=== PATIENT | female | born 2000 | race Caucasian/White ===

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

== ENCOUNTER 2023-11-02 00:53 | Outpatient (CLI) | payer MEDICAID ==
[~2023-11-02] VITALS: Ht 170.2 cm; Wt 84.1 kg
--- NOTE | 2023-11-02 01:00 | NUR ---
Ambulatory to unit for labor assessment, acccompanied by lou. Oriented to room, monitor, plan of care. Pt reports "ctx since 08:30(pm) and they've been getting stronger and closer together. Pt denies LOF or bloody show, stating " maybe more thin mucous since this morning" SVE with no free fluid or vaginal bleeding noted, amniotrace negative.FHT's initially with no acclereations, BP 129/85 P 84. To RL.
[2023-11-02 01:15] VITALS: BP 129/85; PULSE 84; TEMP 98.6
[2023-11-02 01:30] VITALS: BP 111/64; PULSE 77
[2023-11-02] MEDS ORDERED: LR 1,000 ML IV PRN (01:30)
[2023-11-02] MEDS ORDERED: PRENATAL TABLET PO (01:38)
[2023-11-02 02:15] VITALS: BP 121/65; PULSE 80
--- NOTE | 2023-11-02 02:15 | NUR ---
Repeat SVE with no changes noted. Pt reports "ctx are getting stronger" Off monitor to move around room, birthing ball provided.
--- NOTE | 2023-11-02 03:01 | NUR ---
Back on monitor.
[2023-11-02 03:15] VITALS: BP 135/84; PULSE 77
--- NOTE | 2023-11-02 03:43 | NUR ---
Discharge instructions reviewed with pt and spouse. Questions invited and answered. Ambulatory off unit.
== END 2023-11-02 03:43 | disposition home or self-care (01) ==
LOC: LDRO 00:53
DX: O26.893 Other specified pregnancy related conditions, third trimester (principal); E75.5 Other lipid storage disorders; Z3A.40 40 weeks gestation of pregnancy

== ENCOUNTER 2023-11-02 06:41 | Inpatient (IN) | payer MEDICAID ==
[~2023-11-02] VITALS: Ht 170.2 cm; Wt 84.1 kg
[2023-11-02] VITALS (58 sets, daily range): BP systolic 95–140; BP diastolic 6–75; PULSE 60–116; TEMP 97.7–98.8
[~2023-11-02 06:41] MED LIST changes: +PRENATAL TABLET PO
--- NOTE | 2023-11-02 06:50 | NUR ---
PT AMBULATORY TO UNIT WITH SUPPORT PERSON. REPORTS CTX 3-5MIN APART, NO LOF,NO VAGINAL BLEEDING, POSITIVE MOVEMENT. SVE /-2. TOLERATED WELL. NOTIFIED WITH ADMIT ORDERS.
[2023-11-02] MEDS ORDERED: LR 1,000 ML IV SCH (07:15)
[2023-11-02] MEDS ORDERED: LR & Oxytocin 500 ML IV SCH (07:15)
[2023-11-02 07:56] LABS: BASO % 0.2 % (0.0-2.0); EOS % 0.1 % (0.0-4.0); GRAN # 12.1 K/mm3 (1.4-6.5); GRAN % 83.3 % (42.2-75.2); HEMATOCRIT 38.3 % (37.0-47.0); HEMOGLOBIN 12.9 g/dl (12.5-16.0); LYMPH # 1.6 K/mm3 (1.2-3.4); LYMPH % 11.1 % (20.0-51.0); MEAN CELL VOLUME 92 fl (80.0-100.0); MEAN CORPUSCULAR HEMOGLOBIN 31 pg (27-31); MEAN CORPUSCULAR HGB CONC 34 g/dl (33.0-37.0); MEAN PLATELET VOLUME 11.4 fl (7.4-10.4); MONO # 0.7 K/mm3 (0.1-0.6); MONO % 4.8 % (1.7-9.3); PLATELET COUNT 151 K/mm3 (130-400); RED BLOOD COUNT 4.15 M/mm3 (4.10-5.30); REDCELL DISTRIBUTION WIDTH-CV 13.3 % (11.5-14.5)
[2023-11-02] MEDS ORDERED: ROPivacaine PF 0.2% 200 ML IV ONE (07:57)
--- NOTE | 2023-11-02 08:00 | NUR ---
DIMITRIS DURHAM AT BEDSIDE FOR EPIDURAL PLACEMENT. PT SITTING UPRRIGHT ON EDGE OF BED, LR BOLUS INFUSING PER PROTOCOL. VS STABLE. EFM CAT 1. PULSE OX IN PLACE. RISKS DISCUSSED, PT AGREES. 0807 TEST DOSE ADMINISTERED PER COMMISSIONER PUBLIC WORKS. PT TOLERATED WELL. 0810 PT RETURNED TO WL POSITION. VS STABLE, EFM CAT 1.
[2023-11-02] MEDS ORDERED: Naloxone 0.4 MG/ML VIAL IV PRN ×2 (08:30→23:30)
[2023-11-02] MEDS ORDERED: ePHEDrine 50 MG/10 ML VIAL IV PRN (08:30)
[2023-11-02] MEDS ORDERED: diphenhydrAMINE 25 MG CAP PO PRN (08:30)
[2023-11-02] MEDS ORDERED: Ondansetron 4 MG/2 ML VIAL IV PRN (08:30)
[2023-11-02] MEDS ORDERED: diphenhydrAMINE 50 MG/ML 1 ML VIAL IV PRN (08:30)
--- NOTE | 2023-11-02 09:13 | NUR ---
AT BEDSIDE FOR SVE AND AROM AT 0913 MOD AMOUNT CLEAR FLUID. PT TOLERATED WELL. EFM CAT 1. VS STABLE.
--- NOTE | 2023-11-02 16:30 | NUR ---
AT BEDSIDE FOR SVE /+1. PT TOLERATED WELL. REVIEWED STRIP WITH . VS STABLE.
--- NOTE | 2023-11-02 19:30 | NUR ---
SVE Complete. pushing instructions given
--- NOTE | 2023-11-02 20:00 | NUR ---
FHT's with early and late decelerations to 140's-150's, occasional variable to 100-120. Pushing intermittently, minimal descent noted with pushing,
--- NOTE | 2023-11-02 20:30 | NUR ---
FHT's with baseline 160's, recurrent decels some early onset some late onset
--- NOTE | 2023-11-02 20:43 | NUR ---
FHT's baseline 160's with recurrent decelrations. Continues t push intermittently. Dr Graves into room SVE. Disscusses plan of care options with pt and spouse: C/S vs vacuum delivery. Decision made to attempt vacuum delivery. JACLYN and Osvaldo nurse notified. Pt set up and prepped for delivery 2049 Straight cath with return small amount, pink tinged urine. [address] Graves. pt pushes. Vacuum suction released by Dr graves with cessation of ctx. Suction reapplied with next ctx, pt pushing well. 2055 Vacuum assist Vaginal delivery of male infant by Dr Graves after reduction of nuchal cord X1.
[2023-11-02] MEDS ORDERED: traZODone 50 MG TAB PO PRN (21:00)
--- NOTE | 2023-11-02 21:02 | NUR ---
Placenta delivers spont and intact with 3 vessel cord. pitocin gtt to bolus rate. Perineal inspections and repair by Dr Graves started.
--- NOTE | 2023-11-02 21:20 | NUR ---
straight cath by Dr Graves with moderate return. pericare performed, ice pack applied, bed together.
[2023-11-02] MEDS ORDERED: Loratadine 10 MG TAB PO PRN (21:45)
[2023-11-02] MEDS ORDERED: Magnes Hydrox (MOM) 80 MG/ML 30 ML CUP PO PRN (21:45)
--- NOTE | 2023-11-02 23:00 | NUR ---
IV to INT, epidural ayala bernal'd. Up to bathroom with standby assist. Unable to void at this time. pericare, tucks, ice pack applied. Ambulatory to room with steady gait oriented to new room, plan of care.
[2023-11-02] MEDS ORDERED: Witch Hazel 50% Pads Bulk TUB TP PRN (23:30)
[2023-11-02] MEDS ORDERED: Ibuprofen 800 MG TAB PO SCH (23:30)
[2023-11-02] MEDS ORDERED: Phenylephrine/Mineral Oil/Petrolatum 57 GM TUBE RC PRN (23:30)
[2023-11-02] MEDS ORDERED: Measles/Mumps/Rubella Virus Vaccine Live w Diluent 0.5 ML VIAL SQ SCH (23:30)
[2023-11-02] MEDS ORDERED: Mag/Al Hydrox/Simeth Susp 30 ML CUP PO PRN (23:30)
[2023-11-02] MEDS ORDERED: Acetaminophen 500 MG TAB PO SCH (23:30)
[2023-11-03] VITALS: BP 120/60; PULSE 89
[2023-11-03 03:00] VITALS: BP 103/57; PULSE 111
[2023-11-03] MEDS ORDERED: Sennosides/Docusate 8.6-50 MG TAB PO SCH (08:00)
[2023-11-03 08:30] VITALS: BP 125/77; PULSE 92; TEMP 97.9
--- NOTE | 2023-11-03 09:40 | NUR ---
Initial visit; Parents thanked [employer] for looking in on them and offering congratulations and God's blessings for the of their son. [employer] thanked family for choosing [facility].
[2023-11-03 16:30] VITALS: BP 125/68; PULSE 91; TEMP 98.2
[2023-11-03 20:30] VITALS: BP 139/89; PULSE 94; TEMP 98.1
[2023-11-04 08:15] VITALS: BP 126/73; PULSE 87; TEMP 97.9
[2023-11-04] MEDS ORDERED: MOTRIN 800800 MG/TAB PO (09:33)
== END 2023-11-04 14:05 | disposition home or self-care (01) | DRG 807 ==
LOC: LDRO 06:41 → LDR 07:03 → OB 07:03
PROVIDERS: ADMIT Obstetrics & Gynecology
PROC: 10D07Z6 Extraction of Products of Conception, Vacuum, Via Natural or Artificial Opening (ICD-10-PCS; principal; 2023-11-02)
PROC: 0KQM0ZZ Repair Perineum Muscle, Open Approach (ICD-10-PCS; 2023-11-02)
PROC: 0UQMXZZ Repair Vulva, External Approach (ICD-10-PCS; 2023-11-02)
DX: O48.0 Post-term pregnancy (principal); Z37.0 Single live birth; Z3A.40 40 weeks gestation of pregnancy; O70.1 Second degree perineal laceration during delivery; O75.81 Maternal exhaustion complicating labor and delivery; O77.0 Labor and delivery complicated by meconium in amniotic fluid; O69.81X0 Labor and delivery complicated by cord around neck, without compression, not applicable or unspecified
CPT/HCPCS: J2590; J2795; J7120